=== PATIENT | male | born 1980 | race Two or more races ===

== ENCOUNTER 2019-03-24 12:59 | Emergency (ER) | payer OTHER ==
[~2019-03-24] VITALS: Ht 175.3 cm; Wt 70.3 kg
[2019-03-24] MEDS ORDERED: BENADRYL50 MG (13:24)
[2019-03-24] MEDS ORDERED: NIZORAL SHAMPO120 ML TOP (18:22)
[2019-03-24] MEDS ORDERED: AMOX-CLAV 875-1 EACH PO (18:22)
== END 2019-03-24 18:49 | disposition home or self-care (01) ==
LOC: ER 12:59
DX: L03.314 Cellulitis of groin (principal); B35.3 Tinea pedis

== ENCOUNTER → 2021-10-22 | Emergency (ER) | payer OTHER ==
[~2021-10-22] MED LIST: AMOX-CLAV 875-1 EACH PO; BENADRYL50 MG; NIZORAL SHAMPO120 ML TOP
== END | disposition left against medical advice (07) ==
LOC: ER 08:16
DX: Z53.21 Procedure and treatment not carried out due to patient leaving prior to being seen by health care provider (principal)

== ENCOUNTER 2023-01-11 14:58 | Emergency (ER) | payer OTHER ==
[~2023-01-11] VITALS: Ht 175.3 cm; Wt 68.0 kg
== END 2023-01-11 15:38 | disposition home or self-care (01) ==
LOC: ER 14:58
DX: B86 Scabies (principal); R09.81 Nasal congestion; R53.81 Other malaise

== ENCOUNTER 2024-01-05 19:01 | Emergency (ER) | payer OTHER ==
[~2024-01-05] VITALS: Ht 175.3 cm; Wt 63.5 kg
[2024-01-05] MEDS ORDERED: CLARITIN10 MG PO (19:24)
[2024-01-05] MEDS ORDERED: CLINDAMYCIN PHOSPHATE 150 MG/ML (600mg) IM ONE (20:00)
[2024-01-05] MEDS ORDERED: KETOROLAC TROMETHAMINE 30 MG VIAL IM ONE (20:00)
[2024-01-05] MEDS ORDERED: KETOROLAC TROMETHAMINE 30 MG VIAL ONE (20:04)
[2024-01-05] MEDS ORDERED: CLINDAMYCIN PHOSPHATE 150 MG/ML (300mg) ONE (20:04)
[2024-01-05 20:41] LABS: HEMOGLOBIN 15.5 g/dL (13-16.00); MEAN CELL VOLUME 91.6 fL (80.0-100.00); MEAN CORPUSCULAR HEMOGLOBIN 30.8 pg (27.00-32.0); MEAN CORPUSCULAR HGB CONC 33.6 g/dl (32.0-36.0); PLATELET COUNT 334 K/uL (150-450); RED BLOOD COUNT 5.02 M/uL (4.00-6.00); RED CELL DISTRIBUTION WIDTH 13.7 % (11.5-14.5)
[2024-01-05 21:15] LABS: URINE APPEARANCE Clear; URINE BILIRRUBIN Negative (NEGATIVE); URINE BLOOD Negative; URINE COLOR Dark Yellow; URINE GLUCOSE Negative (NEGATIVE); URINE LEUKOCYTE Negative; URINE NITRATE Negative; URINE PROTEIN 30 (NEGATIVE)
[2024-01-05 21:19] LABS: URINE BACTERIA 40.3 uL (0.0-1933); URINE EPITHELIAL CELLS 7.4 uL (0.0-38.8); URINE RBC 5.9 uL (0.0-20.8); URINE WBC 8.1 uL (0.0-23.2)
[2024-01-05 21:35] LABS: CALCIUM 9.4 mg/dL (8.5-10.1); CREATININE SERUM 1.12 mg/dL (0.70-1.30); GFR 71.22; POTASSIUM 3.68 mEq/L (3.5-5.1)
== END 2024-01-05 22:12 | disposition home or self-care (01) ==
LOC: ER 19:02
PROVIDERS: General Practice
DX: L03.116 Cellulitis of left lower limb (principal); Z20.822 Contact with and (suspected) exposure to COVID-19

== ENCOUNTER 2024-08-27 06:17 | Emergency (ER) | payer OTHER ==
[~2024-08-27] VITALS: Ht 175.3 cm; Wt 59.9 kg
[~2024-08-27 06:17] MED LIST changes: +CLARITIN10 MG PO
[2024-08-27 08:56] LABS: HEMATOCRIT 43.4 % (39.0-48.0); HEMOGLOBIN 14.6 g/dL (13-16.00); MEAN CELL VOLUME 91.5 fL (80.0-100.00); MEAN CORPUSCULAR HEMOGLOBIN 30.8 pg (27.00-32.0); MEAN CORPUSCULAR HGB CONC 33.7 g/dl (32.0-36.0); PLATELET COUNT 314 K/uL (150-450); RED BLOOD COUNT 4.74 M/uL (4.00-6.00); RED CELL DISTRIBUTION WIDTH 13.1 % (11.5-14.5)
[2024-08-27 09:14] LABS: ERYTHROCYTE SEDIMENTATION RATE 20 mm/hr
[2024-08-27 09:27] LABS: ALBUMIN 3.4 gm/dL (3.4-5.0); BILIRUBIN TOTAL 0.34 mg/dL (0.3-1.2); CALCIUM 9.1 mg/dL (8.5-10.1); CREATININE SERUM 0.97 mg/dL (0.70-1.30); GFR 83.69; GLOBULINA 3.9 G/DL (2.4-3.5); POTASSIUM 3.97 mEq/L (3.5-5.1); TOTAL PROTEIN 7.3 gm/dL (6.4-8.2)
[2024-08-27 09:29] LABS: C-REACTIVE PROTEIN 1.01 MG/DL (0.00-0.29)
[2024-08-27] MEDS ORDERED: LEVOFLOXACIN750 MG PO (11:42)
== END 2024-08-27 12:18 | disposition home or self-care (01) ==
LOC: ER 06:19
PROVIDERS: General Practice
DX: L03.116 Cellulitis of left lower limb (principal)